=== PATIENT | male | born 1950 | race African-American/Black ===

== ENCOUNTER 2017-02-06 18:16 | Inpatient (IN) | payer MEDICARE, OTHER ==
--- NOTE | ~2017-02-06 | DS ---
Discharge Summary [facility] [address] [place]. [address] NAME: LARRY SALCEDO JR : 50 STATUS : DIS IN PAT#: [id number] AGE: 66 ADM/REG DATE : 02/06/17 MR#: [id number] REPORT SERV DATE: 02/15/17 DICTATED BY: MARCUS SALAZAR DATE: 02/11/17 REPORT STATUS : Draft TRANSCRIBED BY: MODL DATE: 02/11/17 ADMISSION DATE: 02/06/2017 DISCHARGE DATE: 02/11/2017 PRINCIPAL DIAGNOSIS: Sepsis with right lower lobe aspiration pneumonia, secondary to dysphagia, secondary to late effect of cerebrovascular accident. SECONDARY DIAGNOSES: Hypernatremia, due to severe hypovolemia, acute kidney injury, due to hypovolemia, and type 2 diabetes, uncontrolled. HISTORY OF PRESENT ILLNESS: Please see Dr. Adams's dictation on 02/06/2017. HOSPITAL COURSE: The patient was admitted with aspiration pneumonia sepsis and with a very high serum sodium. The patient received antibiotics, received fluid resuscitation, with resolution of his kidney failure, however, sodium remained high as patient's free water deficit was not replaced partly, due to physician orders, and partly due to difficulty with nurse compliance with the fluid management. In any event, the fluids were eventually resuscitated appropriately with optimization of the tube feeding and flushing, and correction free water deficit. Sodium was 145 on 02/11/2017. He was able to be converted to per tube antibiotics and will be released back to [facility] in satisfactory condition with two more days of Augmentin, 70 mL of Jevity 1.2 per hour, with 100 mL of water flushes q.4 hours, Reglan per tube q.i.d., and following other medications Levemir 25 at bedtime, Prinivil 20 b.i.d. NovoLog, prazosin, aspirin, Depakote 500 b.i.d. as his Depakote levels have been low, Zocor, and Lopressor. Greater 30 minutes were spent in the care of this patient on discharge day. RSM/RAIZA Marcus Salazar M.D. / [id number] CC: Marcus Salazar M.D. [facility]
--- NOTE | ~2017-02-06 | HP ---
History And Physical [place] [id number] [facility] [place]. [address] NAME: LARRY SALCEDO JR : 50 STATUS : ADM IN [facility]#: [id number] AGE: 66 ADM/REG DATE : 02/06/17 MR#: [id number] REPORT SERV DATE: 02/07/17 DICTATED BY: TARAN DELUCA DATE: 02/07/17 REPORT STATUS : Draft TRANSCRIBED BY: MODDee DATE: 02/07/17 DATE OF ADMISSION: 02/06/2017 ADDENDUM: Given patient's sepsis, insulin dependent associated with hyperglycemia, acute kidney injury, elevated troponin levels, as well as hyponatremia, and adequate fluid resuscitation in the emergency department, so decision was made to admit to the IMCU for high level of care. Critical care time spent on admission 60 minutes. NEEL/RAIZA Taran Deluca MD / [id number] CC: Luis Daniel Isaacs M.D.
--- NOTE | ~2017-02-06 | HP ---
History And Physical [place] [address] [place]. [address] NAME: LARRY LEZAMA JR : 50 STATUS : ADM IN [facility]#: [id number] AGE: 66 ADM/REG DATE : 02/06/17 MR#: [id number] REPORT SERV DATE: 02/06/17 DICTATED BY: TARAN DELUCA DATE: 02/06/17 REPORT STATUS : Draft TRANSCRIBED BY: MODL DATE: 02/06/17 DATE OF ADMISSION: 02/06/2017 POINT OF ENTRY: [facility] Emergency Department. PRIMARY CARE PHYSICIAN: Unknown at this time. CHIEF COMPLAINT: Fevers, high blood pressure, high blood sugar, and tachycardia. HISTORY OF PRESENT ILLNESS: Mr. Lezama is a 66-year-old gentleman with a history of cerebrovascular accident with resulting dysphagia and aspiration requiring PEG tube insertion as well as nonverbal bedridden status who is a long-term resident of [facility], who was transferred over for multiple complaints including tachycardia, hyperglycemia, hypertension, and fevers. According to discussion with ER staff as well as review of transfer records, it appears he was transferred for high blood sugar of 427 as well as tachycardia with heart rates in the 140s and a temperature of 101.2 degrees Fahrenheit. Again, no history is obtained from the patient. He is nonverbal. Initial evaluation in the emergency department notable for a temperature of 103.6 with a pulse of 142 and respirations of 22. Workup revealed a CT scan of the abdomen and pelvis without an obvious source of infection. Did show some fecal stasis. Chest x-ray was difficult to interpret, but appears to be clear. White count is elevated at 14,700. He has acute kidney injury with a creatinine of 2.36 as well as hyponatremia with a sodium of 153. Urinalysis is pending at the time of dictation. Lactic acid 2.1. Procalcitonin was 0.19. Troponin was elevated at 1.12. At the time of my evaluation, the patient received approximately 500 mL of IV fluid and 1 g of cefepime with heart rates still remaining into the 130s. REVIEW OF SYSTEMS: Comprehensive review of systems unable to be obtained secondary to the patient's nonverbal status. PREVIOUS MEDICAL HISTORY: 1. Cerebrovascular accident with bedridden nonverbal status. 2. Aspiration dysphagia with PEG tube. 3. Hypertension. 4. Hyperlipidemia. 5. Insulin-dependent diabetes mellitus type 2. 6. Chronic kidney disease stage 3. Baseline creatinine of approximately 1.2 to 1.3. 7. History of seizure disorder. 8. Chronic left bundle-branch block. 9. Anxiety. SURGICAL HISTORY: PEG tube. History And Physical [place] [address] [place]. [address] NAME: LARRY LEZAMA JR : 50 STATUS : ADM IN [facility]#: [id number] AGE: 66 ADM/REG DATE : 02/06/17 MR#: [id number] REPORT SERV DATE: 02/06/17 DICTATED BY: TARAN DELUCA DATE: 02/06/17 REPORT STATUS : Draft TRANSCRIBED BY: RAIZA DATE: 02/06/17 ALLERGIES: NO KNOWN. HOME MEDICATIONS: 1. Tylenol 325 q.4 p.r.n. 2. Norvasc 10 mg daily. 3. Vitamin C 500 mg b.i.d. 4. Aspirin 81 mg daily. 5. Clonidine 0.1 mg b.i.d. 6. Lantus 12 units at bedtime. 7. Insulin sliding scale. 8. Lactulose 15 mL b.i.d. 9. Lisinopril 10 mg daily. 10.Lopressor 50 mg b.i.d. 11.Prazosin 1 mg q.8 hours. 12.Simvastatin 10 mg at bedtime. 13.Depakote 250 mg t.i.d. SOCIAL HISTORY: Long-term resident of [facility]. Denies any tobacco, alcohol, or illicits. FAMILY MEDICAL HISTORY: Reported cancer and coronary artery disease. LABS AND IMAGIN. White count is 14.7, hemoglobin is 14.7, hematocrit 41.7, and platelet count is 222. 2. Sodium is 153, potassium 4.4, chloride 118, carbon dioxide 31, BUN 62, creatinine 2.36, glucose is 447, calcium is 8.9, protein is 8.2, albumin is 3.2, bilirubin is 0.3, ALT is 42, AST 14, and alkaline phosphatase is 94. 3. Lactic acid of 2.1. Procalcitonin is 0.19. 4. Troponin 1.12. 5. EKG per my review shows sinus tachycardia with left bundle branch block with heart rate of 142. 6. CT scan of the abdomen and pelvis shows no acute abdominopelvic pathology to explain the patient's presenting complaints such as cardiomegaly as well as evidence of pulmonary hypertension. 7. Retained fecal stasis. 8. Chest x-ray per my review shows a chronically elevated right hemidiaphragm, poor penetration. Chest x-ray is difficult to interpret. I do not appreciate any gross consolidation or infiltrate. 9. ABG: PH is 7.49, pCO2 of 37, PO2 of 64, bicarb is 27, and saturating 93% on room air. 10.Flu swab is negative. 11.Urinalysis is pending at the time of dictation. PHYSICAL EXAMINATION: VITAL SIGNS: Temperature 103.6, on recheck it is now 102.7; pulse 142; respirations 22, saturating 90% on 2 L by nasal cannula. On recheck, pulse is now 123, blood pressure 141/97. History And Physical [address] [address] NAME: LARRY LEZAMA : 50 STATUS : ADM IN [facility]#: [id number] AGE: 66 ADM/REG DATE : 02/06/17 MR#: [id number] REPORT SERV DATE: 02/06/17 DICTATED BY: TARAN DELUCA DATE: 02/06/17 REPORT STATUS : Draft TRANSCRIBED BY: RAIZA DATE: 02/06/17 GENERAL: The patient is a chronically ill-appearing elderly male who is nonverbal at baseline who appears nontoxic. HEENT: Atraumatic and normocephalic. Slightly dry mucous membranes. Pupils equal, round, reactive to light and accommodation. Extraocular eye movements intact. NECK: No jugular venous distention or carotid bruits. CARDIAC: Tachycardic rate, regular rhythm. No murmurs or gallops. LUNGS: The patient is not cooperating with exam. I do not appreciate any rhonchi. However, the patient does sound congested and wet. ABDOMEN: PEG tube is in place, well-seated. No rebound, guarding, or rigidity. EXTREMITIES: Warm, perfused. No cyanosis, clubbing, or edema. SKIN: Warm and dry. PSYCH: Appropriate. NEURO: Awake, interactive with me, but again, nonverbal at baseline. Moves all extremities well. ASSESSMENT: Mr. Lezama is a 66-year-old gentleman who presents with tachycardia, fevers, hypertension, hyperglycemia, and found to have evidence of sepsis of unknown origin. PROBLEM LIST: 1. Sepsis of unknown origin. 2. Presumed healthcare associated versus aspiration pneumonia. 3. Acute kidney injury. 4. Elevated troponin level. 5. Hyponatremia. 6. Insulin-dependent diabetes mellitus type 2 with hyperglycemia. PLAN: 1. Sepsis unknown origin. The patient's lactic acid level is 2.1. Procalcitonin is 0.19. I do not have a source, but given his history, I suspect it is likely aspiration versus healthcare associated pneumonia. Urinalysis is pending at the time of dictation. We will follow up blood cultures. We will empirically place the patient on broad-spectrum antibiotics of vancomycin, cefepime, and Flagyl. Aggressive IV fluid hydration given the patient's hyponatremia, sepsis, and persistent tachycardia. 2. Presumed healthcare associated versus aspiration pneumonia. We will check a sputum and blood cultures. Vanc, cefepime, and Flagyl antibiotics. 3. Insulin-dependent diabetes mellitus type 2 with hyperglycemia. Insulin drip. 4. Elevated troponin level. I am unable to ascertain when the patient has chest pain as he is nonverbal. EKG has a chronic left bundle-branch block. I suspect this is all secondary to demand ischemia secondary to patient's sepsis and dehydration. We will continue to trend out cardiac enzymes. 5. Acute kidney injury. Holding the patient's lisinopril. Aggressive IV fluid hydration. 6. Hypernatremia. Aggressive IV fluid hydration with hypotonic saline. We will start with LR for sepsis resuscitation. May switch to half-normal saline at some point in the near future once he is appropriately fluid resuscitated from his sepsis. 7. DVT prophylaxis. Heparin subcu. 8. Code status. The patient is reported to be a full code per transfers from [facility]. History And Physical [address] [place]. [address] NAME: LARRY LEZAMA JR : 50 STATUS : ADM IN [facility]#: [id number] AGE: 66 ADM/REG DATE : 02/06/17 MR#: [id number] REPORT SERV DATE: 02/06/17 DICTATED BY: TARAN DELUCA DATE: 02/06/17 REPORT STATUS : Draft TRANSCRIBED BY: MODL DATE: 02/06/17 NEEL/RAIZA Taran Deluca MD / [id number] CC: Luis Daniel Isaacs M.D.
[2017-02-06 17:42] LABS: BE (BASE EXCESS) 3.7 MEQ/L (0 +/- 2.5); CARBOXYHEMOGLOBIN 1.3 % (0-3); HEMOBLOGIN CONTENT 15.1 G/DL (14-18); INSTRUMENT SERIAL # 8087; METHEMOGLOBIN 0.3 % (0-3); O2 CONTENT 19.4 VOL% (18-24); OPERATOR ID 14335; PCO2 (CO2 TENSION) 37 MMHG (35-45); PO2 (O2 TENSION) 64 MMHG (79-93); SAMPLE Arterial; pH 7.49 (7.37-7.43)
[2017-02-06 17:43] LABS: ALLENS TEST Pos
[2017-02-06 17:51] LABS: BASOPHILS 0.5 %; BASOPHILS ABSOLUTE 0.08 10/3/uL (0.0-0.16); EOSINOPHILS 0.1 %; EOSINOPHILS ABSOLUTE 0.01 10/3/uL (0.0-0.53); ER CBC TAT 0 Hrs 12 Mins; HEMATOCRIT 46.7 % (40.0-51.0); HEMOGLOBIN 14.7 g/dL (13.6-17.8); IMMATURE GRANULOCYTES 0.3 %; IMMATURE GRANULOCYTES ABSOLUTE 0.05 10/3/uL (0.0-0.11); LYMPHOCYTES 19.1 %; MANUAL DIFF NO %; MEAN CORPUS HGB CONC 31.5 g/dL (32.0-36.0); MEAN CORPUSCULAR HEMOGLOB 30.4 pg (26.0-34.0); MEAN CORPUSCULAR VOLUME 96.5 fL (80-100); MEAN PLATELET VOLUME 12.5 fL (9.2-13.0); MONOCYTES 15.3 %; MONOCYTES ABSOLUTE 2.24 10/3/uL (0.21-1.20); NEUTROPHILS 64.7 %; NEUTROPHILS ABSOLUTE 9.49 10/3/uL (2.02-8.40); PLATELET COUNT 222 10/3/uL (150-400); RBC DISTRIBUTION WIDTH 13.5 % (12.0-16.0); RED CELL COUNT 4.84 10/6/uL (4.7-6.1); WHITE BLOOD CELLS 14.7 10/3/uL (4.5-10.5)
[2017-02-06 18:03] LABS: A/G RATIO 0.6 (0.7-1.9); ALBUMIN 3.2 G/DL (3.5-5.0); CALCIUM, SERUM 8.9 MG/DL (8.5-10.4); CHLORIDE, SERUM 118 MMOL/L (96-112); POTASSIUM, SERUM 4.4 MMOL/L (3.5-5.3); SGOT(AST) 14 U/L (5-40); SGPT(ALT) 42 U/L (5-65); TOTAL BILIRUBIN 0.3 MG/DL (0-1.2); TOTAL PROTEIN 8.2 G/DL (6.0-8.5)
[2017-02-06 18:04] LABS: ALKALINE PHOSPHATASE 94 U/L (45-117); BUN (BLOOD UREA NITROGEN) 62 MG/DL (6-23); CO2 (CARBON DIOXIDE) 31 MMOL/L (24-34); CREATININE 2.36 MG/DL (0.70-1.30); GFR AFRICAN AMERICAN 32 ML/MIN (>=60); GFR NON AFRICAN AMERICAN 28 ML/MIN (>=60); GLUCOSE, SERUM 447 MG/DL (60-99); SODIUM, SERUM 153 MMOL/L (135-148); TROPONIN I 1.12 NG/ML (<0.05)
[2017-02-06 18:05] LABS: LACTATE 2.1 MMOL/L (0.3-2.4)
[~2017-02-06 18:16] MED LIST: APRES50 PO; ARICEPT10 PEG; ARICEPT10 PO; ASAB PEG; ASAB PO; ATV.5 PO; BISR PR; CAT1 PEG; CELEXA10 PO; CLARIT10 PO; COLACEUDL PEG; COLACEUDL PO; CONSTULOSE PEG; D.O.S.100 MG PO; DEPAKOT500 PO; DEPAKUDL PEG; DEPAKUDL PO; DOK100 MG PO; DUONEB INH; GEODON60 MG PO; GLUCOTRO10 PO; HUMALOGPEN SC; HUMULIN R1 ML SC; IMDUR60 PO; IMOD PO; LANTUS SC; LANTUSCART SC; LEVEMIR SC; LOP50 PEG; LORTAB 5 PO; LUBRIFRESH OP; MOMUD PEG; NAMENDA10 MG PO; NAMENXR28 PO; NORV10 PEG; NORV10 PO; NORV5; NORV5 PO; NOVOPEN SC; PRAZOSIN HCL1 MG PEG; PRILO PEG; PRILOSEC OTC20 MG PEG; PRIN10 PEG; PRIN5 PO; PROVENTSOL INH; REFRESH OPH SO0.3 ML OPH; SENTAB PO; SEROQUEL25 PO; T PEG; T PO; TEARS PURE OPH; TRANDAT100 PO; VITC500 PEG; X25 PEG; X5 PEG; XANAX1 MG PO; ZESTRIL10 MG PEG; ZESTRIL5 MG PO; ZOCOR10 PEG; ZOCOR10 PO
[2017-02-06 18:27] LABS: PROCALCITONIN 0.19 ng/mL (<0.5)
[2017-02-06 18:44] LABS: INFLUENZA A SCREEN NEGATIVE (NEGATIVE); INFLUENZA B SCREEN NEGATIVE (NEGATIVE)
[2017-02-06 19:42] LABS: ASCORBIC ACID (UR NOT ORDER) 40 (NEG); BILIRUBIN, URINE NEGATIVE (NEG); ER URINALYSIS TAT 0 Hrs 14 Mins; KETONE, URINE NEGATIVE (NEG); LEUKOCYTE ESTERASE(NOT OR NEG (NEG); NITRITE (URINE) NEG (NEG); WBC (NOT ORDERED) (RFLEX) < 1 (0-5)
[2017-02-06 21:07] LABS: INTERNATIONAL NORMAL RATI 1.3 UNITS (-); PROTIME (NOT ORD) 15.6 SEC (12.0-14.5)
[2017-02-07 08:46] LABS: BASOPHILS 0.6 %; BASOPHILS ABSOLUTE 0.08 10/3/uL (0.0-0.16); EOSINOPHILS 0.6 %; EOSINOPHILS ABSOLUTE 0.08 10/3/uL (0.0-0.53); IMMATURE GRANULOCYTES 0.7 %; LYMPHOCYTES 14.6 %; LYMPHOCYTES ABSOLUTE 2.06 10/3/uL (0.67-4.30); MEAN CORPUSCULAR VOLUME 98.3 fL (80-100); MEAN PLATELET VOLUME 12.1 fL (9.2-13.0); MONOCYTES 13.8 %; MONOCYTES ABSOLUTE 1.95 10/3/uL (0.21-1.20); NEUTROPHILS 69.7 %; NEUTROPHILS ABSOLUTE 9.84 10/3/uL (2.02-8.40); RBC DISTRIBUTION WIDTH 13.6 % (12.0-16.0)
[2017-02-07 08:48] LABS: HEMATOCRIT 45.6 % (40.0-51.0); HEMOGLOBIN 14.3 g/dL (13.6-17.8); MANUAL DIFF NO %; MEAN CORPUS HGB CONC 31.4 g/dL (32.0-36.0); MEAN CORPUSCULAR HEMOGLOB 30.8 pg (26.0-34.0); PLATELET COUNT 180 10/3/uL (150-400); RED CELL COUNT 4.64 10/6/uL (4.7-6.1); WHITE BLOOD CELLS 14.1 10/3/uL (4.5-10.5)
[2017-02-07 09:16] LABS: ALBUMIN 2.9 G/DL (3.5-5.0); BUN (BLOOD UREA NITROGEN) 47 MG/DL (6-23); CALCIUM, SERUM 8.6 MG/DL (8.5-10.4); CHLORIDE, SERUM 123 MMOL/L (96-112); CO2 (CARBON DIOXIDE) 32 MMOL/L (24-34); CPK (IF ELEVATED MB BANDS) 1468 U/L (0-200); PHOSPHORUS, SERUM 3.4 MG/DL (2.5-4.5); SODIUM, SERUM 159 MMOL/L (135-148)
[2017-02-07 09:17] LABS: CREATININE 1.76 MG/DL (0.70-1.30); GFR AFRICAN AMERICAN 46 ML/MIN (>=60); GFR NON AFRICAN AMERICAN 39 ML/MIN (>=60); GLUCOSE, SERUM 174 MG/DL (60-99)
[2017-02-07 09:18] LABS: TROPONIN I 1.44 NG/ML (<0.05)
[2017-02-07 09:44] LABS: CK-MB 3.1 NG/ML
[2017-02-07 10:50] LABS: OSMOLALITY, URINE 680 MOSM/KG (50-1200)
[2017-02-07 10:57] LABS: SODIUM, URINE 37 MEQ/L
[2017-02-07 13:21] LABS: GLYCOHEMOGLOBIN (HbA1c) 9.2 % (4.7-6.1)
[2017-02-08 06:16] LABS: BASOPHILS 0.5 %; BASOPHILS ABSOLUTE 0.05 10/3/uL (0.0-0.16); EOSINOPHILS 2.2 %; EOSINOPHILS ABSOLUTE 0.22 10/3/uL (0.0-0.53); HEMOGLOBIN 11.7 g/dL (13.6-17.8); IMMATURE GRANULOCYTES 0.1 %; IMMATURE GRANULOCYTES ABSOLUTE 0.01 10/3/uL (0.0-0.11); LYMPHOCYTES 14.2 %; LYMPHOCYTES ABSOLUTE 1.43 10/3/uL (0.67-4.30); MEAN CORPUS HGB CONC 31.1 g/dL (32.0-36.0); MEAN CORPUSCULAR HEMOGLOB 29.8 pg (26.0-34.0); MEAN CORPUSCULAR VOLUME 95.9 fL (80-100); MEAN PLATELET VOLUME 12.6 fL (9.2-13.0); MONOCYTES 8.6 %; MONOCYTES ABSOLUTE 0.87 10/3/uL (0.21-1.20); NEUTROPHILS 74.4 %; PLATELET COUNT 162 10/3/uL (150-400); RBC DISTRIBUTION WIDTH 13.6 % (12.0-16.0); RED CELL COUNT 3.92 10/6/uL (4.7-6.1); WHITE BLOOD CELLS 10.1 10/3/uL (4.5-10.5)
[2017-02-08 06:22] LABS: HEMATOCRIT 37.6 % (40.0-51.0); MANUAL DIFF NO %
[2017-02-08 06:32] LABS: CALCIUM, SERUM 7.8 MG/DL (8.5-10.4); CHLORIDE, SERUM 122 MMOL/L (96-112); CO2 (CARBON DIOXIDE) 30 MMOL/L (24-34); CREATININE 1.27 MG/DL (0.70-1.30); GFR AFRICAN AMERICAN 68 ML/MIN (>=60); GFR NON AFRICAN AMERICAN 58 ML/MIN (>=60); POTASSIUM, SERUM 3.6 MMOL/L (3.5-5.3); SODIUM, SERUM 155 MMOL/L (135-148)
[2017-02-08 06:36] LABS: BUN (BLOOD UREA NITROGEN) 32 MG/DL (6-23); GLUCOSE, SERUM 221 MG/DL (60-99); TROPONIN I 0.75 NG/ML (<0.05)
[2017-02-08 14:16] LABS: A/G RATIO 0.6 (0.7-1.9); ALBUMIN 2.5 G/DL (3.5-5.0); ALKALINE PHOSPHATASE 60 U/L (45-117); GLOBULIN 4.1 G/DL (2.5-4.1); PHOSPHORUS, SERUM 2.7 MG/DL (2.5-4.5); PREALBUMIN 17.9 MG/DL (17.0-43.0); SGOT(AST) 23 U/L (5-40); SGPT(ALT) 25 U/L (5-65); TOTAL BILIRUBIN 0.5 MG/DL (0-1.2); TOTAL PROTEIN 6.6 G/DL (6.0-8.5)
[2017-02-09 06:10] LABS: BASOPHILS 0.6 %; BASOPHILS ABSOLUTE 0.05 10/3/uL (0.0-0.16); EOSINOPHILS 2.5 %; EOSINOPHILS ABSOLUTE 0.23 10/3/uL (0.0-0.53); HEMATOCRIT 38.6 % (40.0-51.0); HEMOGLOBIN 12.1 g/dL (13.6-17.8); IMMATURE GRANULOCYTES 0.2 %; IMMATURE GRANULOCYTES ABSOLUTE 0.02 10/3/uL (0.0-0.11); LYMPHOCYTES 14.9 %; LYMPHOCYTES ABSOLUTE 1.35 10/3/uL (0.67-4.30); MEAN CORPUS HGB CONC 31.3 g/dL (32.0-36.0); MEAN CORPUSCULAR HEMOGLOB 29.8 pg (26.0-34.0); MEAN CORPUSCULAR VOLUME 95.1 fL (80-100); MEAN PLATELET VOLUME 12.7 fL (9.2-13.0); MONOCYTES 10.6 %; MONOCYTES ABSOLUTE 0.96 10/3/uL (0.21-1.20); NEUTROPHILS 71.2 %; NEUTROPHILS ABSOLUTE 6.43 10/3/uL (2.02-8.40); PLATELET COUNT 166 10/3/uL (150-400); RBC DISTRIBUTION WIDTH 13.1 % (12.0-16.0); RED CELL COUNT 4.06 10/6/uL (4.7-6.1)
[2017-02-09 06:14] LABS: MANUAL DIFF NO %
[2017-02-09 06:17] LABS: CALCIUM, SERUM 8.2 MG/DL (8.5-10.4); CHLORIDE, SERUM 118 MMOL/L (96-112); CO2 (CARBON DIOXIDE) 27 MMOL/L (24-34); CREATININE 1.26 MG/DL (0.70-1.30); GFR AFRICAN AMERICAN 68 ML/MIN (>=60); GFR NON AFRICAN AMERICAN 59 ML/MIN (>=60); GLUCOSE, SERUM 222 MG/DL (60-99); POTASSIUM, SERUM 3.8 MMOL/L (3.5-5.3); SODIUM, SERUM 153 MMOL/L (135-148)
[2017-02-09 06:24] LABS: BUN (BLOOD UREA NITROGEN) 21 MG/DL (6-23)
[2017-02-10 06:37] LABS: BUN (BLOOD UREA NITROGEN) 23 MG/DL (6-23); CALCIUM, SERUM 7.8 MG/DL (8.5-10.4); CHLORIDE, SERUM 118 MMOL/L (96-112); CO2 (CARBON DIOXIDE) 29 MMOL/L (24-34); CREATININE 1.18 MG/DL (0.70-1.30); GFR AFRICAN AMERICAN 74 ML/MIN (>=60); GFR NON AFRICAN AMERICAN 64 ML/MIN (>=60); GLUCOSE, SERUM 234 MG/DL (60-99); PHOSPHORUS, SERUM 3.2 MG/DL (2.5-4.5); POTASSIUM, SERUM 4.2 MMOL/L (3.5-5.3); SODIUM, SERUM 153 MMOL/L (135-148)
[2017-02-10 17:16] LABS: WBC (NOT ORDERED) (RFLEX) 0 (0-5)
[2017-02-10 17:37] LABS: ASCORBIC ACID (UR NOT ORDER) 40 (NEG); BILIRUBIN, URINE NEGATIVE (NEG); KETONE, URINE NEGATIVE (NEG); LEUKOCYTE ESTERASE(NOT OR NEG (NEG)
[2017-02-10 18:09] LABS: BUN (BLOOD UREA NITROGEN) 22 MG/DL (6-23); CHLORIDE, SERUM 117 MMOL/L (96-112); CO2 (CARBON DIOXIDE) 29 MMOL/L (24-34); CREATININE 1.07 MG/DL (0.70-1.30); GFR AFRICAN AMERICAN 83 ML/MIN (>=60); GFR NON AFRICAN AMERICAN 72 ML/MIN (>=60); GLUCOSE, SERUM 197 MG/DL (60-99); SODIUM, SERUM 152 MMOL/L (135-148)
[2017-02-11 10:39] LABS: BUN (BLOOD UREA NITROGEN) 19 MG/DL (6-23); CALCIUM, SERUM 8.2 MG/DL (8.5-10.4); CHLORIDE, SERUM 114 MMOL/L (96-112); CO2 (CARBON DIOXIDE) 27 MMOL/L (24-34); GFR AFRICAN AMERICAN 90 ML/MIN (>=60); GFR NON AFRICAN AMERICAN 78 ML/MIN (>=60); GLUCOSE, SERUM 214 MG/DL (60-99); PHOSPHORUS, SERUM 2.7 MG/DL (2.5-4.5); POTASSIUM, SERUM 4.3 MMOL/L (3.5-5.3)
[2017-02-11 10:40] LABS: SODIUM, SERUM 145 MMOL/L (135-148)
[2017-05-02] MEDS ORDERED: L20 PEG (13:34)
[2017-05-02] MEDS ORDERED: ELIQUIS 5 MG TAB5 MG PEG (13:34)
[2017-05-02] MEDS ORDERED: ASAB PEG (13:34)
[2017-05-02] MEDS ORDERED: LANTUSCART SC (13:35)
[2017-05-02] MEDS ORDERED: APRES10B PEG (13:35)
[2017-05-02] MEDS ORDERED: HUMALOGPEN SC (13:35)
[2017-05-02] MEDS ORDERED: LOP50 PEG (13:36)
[2017-05-02] MEDS ORDERED: REG5 PEG (13:36)
[2017-05-02] MEDS ORDERED: PRIN20 PEG (13:36)
[2017-05-02] MEDS ORDERED: MINIPRESS 1 MG C1 MG PEG (13:37)
[2017-05-02] MEDS ORDERED: MIRALAX POWDER1 PKT PEG (13:37)
[2017-05-02] MEDS ORDERED: VITC500 PEG (13:38)
[2017-05-02] MEDS ORDERED: DEPAKUDL PEG (13:38)
[2017-05-02] MEDS ORDERED: ZOCOR10 PEG (13:38)
[2017-05-02] MEDS ORDERED: T PEG ×2 (13:39→13:40)
[2017-05-02] MEDS ORDERED: BISR PR (13:42)
[2017-05-02] MEDS ORDERED: FLEETS ENEMA PR (13:43)
[2017-05-02] MEDS ORDERED: MOMUD PEG (13:44)
[2017-05-08] MEDS ORDERED: HALF81 PEG (19:15)
[2017-05-08] MEDS ORDERED: CIP5 PEG (19:17)
[2017-05-08] MEDS ORDERED: ELIQUIS 5 MG TAB5 MG PO (19:17)
[2017-05-08] MEDS ORDERED: HUMALOG SC (19:19)
[2017-05-08] MEDS ORDERED: LANTUS SC (19:20)
[2017-05-08] MEDS ORDERED: APRES10B PEG (19:20)
[2017-05-08] MEDS ORDERED: PRIN20 PEG (19:21)
[2017-05-08] MEDS ORDERED: REG5 PEG (19:22)
[2017-05-08] MEDS ORDERED: LOP50 PEG (19:23)
[2017-05-08] MEDS ORDERED: MINIPRESS 1 MG C1 MG PEG (19:24)
[2017-05-08] MEDS ORDERED: MIRALAX POWDER1 PKT PEG (19:24)
[2017-05-08] MEDS ORDERED: ZOCOR10 PEG (19:25)
[2017-05-08] MEDS ORDERED: DEPAKUDL PEG (19:26)
[2017-05-08] MEDS ORDERED: VITC500 PEG (19:26)
[2017-05-08] MEDS ORDERED: CAT1 PEG (19:28)
[2017-05-08] MEDS ORDERED: BISR PR (19:28)
[2017-05-08] MEDS ORDERED: SODBICAR10 PEG (19:31)
[2017-05-08] MEDS ORDERED: T PEG (19:32)
[2017-05-08] MEDS ORDERED: ROCEPH IM (19:35)
== END 2017-02-11 16:37 | DRG 871 ==
LOC: ER 18:16 → 7NO 18:42 → IMCU 19:48 → 1SO 02-07 12:07
PROVIDERS: Hospitalist; Internal Medicine
DX: A41.9 Sepsis, unspecified organism (principal); J69.0 Pneumonitis due to inhalation of food and vomit; N17.9 Acute kidney failure, unspecified; E87.0 Hyperosmolality and hypernatremia; I69.351 Hemiplegia and hemiparesis following cerebral infarction affecting right dominant side; I24.8 Other forms of acute ischemic heart disease; E87.1 Hypo-osmolality and hyponatremia; I48.91 Unspecified atrial fibrillation; E86.0 Dehydration; I12.9 Hypertensive chronic kidney disease with stage 1 through stage 4 chronic kidney disease, or unspecified chronic kidney disease; E11.22 Type 2 diabetes mellitus with diabetic chronic kidney disease; G40.909 Epilepsy, unspecified, not intractable, without status epilepticus; I69.391 Dysphagia following cerebral infarction; E11.65 Type 2 diabetes mellitus with hyperglycemia; K59.00 Constipation, unspecified; N18.3 Chronic kidney disease, stage 3 (moderate); E78.5 Hyperlipidemia, unspecified; I44.7 Left bundle-branch block, unspecified; I25.2 Old myocardial infarction; Z79.4 Long term (current) use of insulin; Z79.82 Long term (current) use of aspirin; Z79.899 Other long term (current) drug therapy; Z93.1 Gastrostomy status; Z74.01 Bed confinement status; Z87.01 Personal history of pneumonia (recurrent)
CPT/HCPCS: 36600; 71010; 71250; 74000; 74176; 76700; 80048; 80053; 80069; 80164; 81001; 82140; 82550; 82553; 82805; 82962; 83036; 83605; 83735; 83935; 84100; 84134; 84145; 84300; 84439; 84443; 84484; 85025; 85610; 85730; 87040; 87641; 87804; 96365; 99291; A9270-GY; J0295; J0692; J2765; J3370